=== PATIENT | male | born 1955 ===

== ENCOUNTER 2022-02-08 18:24 | Inpatient (IN) | payer MEDICAID, SELFPAY ==
--- NOTE | 2022-02-08 | DI.RAD_ITS ---
Exam(s) XR FEMUR LT EXAM: XR FEMUR LT CLINICAL HISTORY: Evaluate for fracture extension down shaft. TECHNIQUE: 2D digital imaging was performed. COMPARISON: No exams were available for comparison FINDINGS: Two views: There is an intertrochanteric fracture of the left hip with extension into the subtrochanteric region . The lesser trochanter is not avulsed. IMPRESSION: Inter-subtrochanteric fracture. If clinically indicated further study with CT or MRI can be performe d. DATA REPOSITORY: RADIATION DOSE DELIVERED:
[2022-02-08 20:06] VITALS: BP 125/60; PULSE 89; RESP 18; TEMP 36.6; O2SAT 97
[2022-02-08] MEDS: HYDROmorphone 2 MG/ML SYR 0.5 MG IVP (21:28)
--- NOTE | 2022-02-08 22:24 | DI.VRAD_ITS ---
PROCEDURE INFORMATION: Exam: XR Left Femur Exam date and time: 02/08/2022 21:53 Age: 66 years old Clinical indication: Injury or trauma; Fall; Blunt trauma; Hip and thigh or upper leg; Left; Patient HX: Evaluate for fracture extension down shaft TECHNIQUE: Imaging protocol: Radiologic exam of the Left femur. Views: 2 views. COMPARISON: CR XR LT HIP 1V PELVIS [id number]* 02/08/2022 13:38 FINDINGS: Bones/joints: Acute intertrochanteric left femoral fracture is again seen. The remainder of the femur is intact. Soft tissues: Soft tissue swelling surrounding the fracture site. IMPRESSION: Acute intertrochanteric left femoral fracture is again seen. The remainder of the femur is intact. Dictated and Authenticated by: Loida Baires MD. Ordering:ZULEYMA Jacome MD
[2022-02-08 22:57] VITALS: BP 154/78; PULSE 75; RESP 16; TEMP 37; O2SAT 99
[2022-02-08] MEDS: Ketorolac 15 MG/ML VIAL IVP (23:04)
[2022-02-08] MEDS: Lactated Ringers 1,000 ML 80 ML IV (23:20)
[2022-02-09] VITALS (17 sets, daily range): BP systolic 104–151; BP diastolic 53–99; PULSE 60–85; RESP 12–24; TEMP 36.6–37.5; O2SAT 97–100; BMI 26.6
[2022-02-09] MEDS: HYDROmorphone 2 MG/ML SYR 0.5 MG IVP ×3 (00:34→05:19)
[2022-02-09] MEDS: Normal Saline Flush 10 ML SYR IVP ×4 (00:34→20:36)
[2022-02-09] MEDS: Ketorolac 15 MG/ML VIAL IVP ×3 (05:20→20:36)
--- NOTE | 2022-02-09 06:42 | HPE_ITS ---
Date of service: 02/09/22 Time of Service: 06:00 Assessment and Plan Assessment and plan (1) Fracture, intertrochanteric, left femur: Status: Acute Assessment and plan: Anthony is an independent 66-year-old male who suffered a mechanical fall onto his left hip. Unfortunately, this resulted in an intertrochanteric fracture about the left femur. He has no other major medical issues. He is highly functional although with some mild residual deficits from his previous spinal injury when he was a child. I reviewed the fracture with Anthony and discussed treatment options. I would recommend operative fixation in the form of an intramedullary nail. I discussed this with him reviewed the procedure. I discussed the risk of the procedure to include bleeding, infection, pain, stiffness, damage nerves and vessels, damage to muscle and tendons, malunion, nonunion, hardware prominence, hardware failure, blood clot. Despite these risk, he elects to proceed. He will remain n.p.o. He was tested for COVID-[address] [facility] which was negative. He has no current COVID-19 symptoms nor close contacts. He will continue with his home straight cath regimen and we will avoid placement of a Moilna catheter. After surgery he will order physical therapy will be weightbearing as tolerated with anticipation of discharge to home with home health services. History of Present Illness History of Present Illness Chief Complaint: Left Hip Fracture Narrative: Anthony is a 66-year-old who was in his usual state of health yesterday morning. He was sitting outside enjoying the nice weather. He felt that he sat for a little too long and his legs are getting a little numb. He does have some chronic issues with his legs after a spinal injury as a kid which also resulted in some complications from surgery. However, this has been largely unchanged for some time. Nevertheless, as he went to stand his legs felt somewhat clumsy and he tripped over his own feet rotating and then eventually landing on his left side. As he was going down he reportedly fell the leg breaking at that time but immediately knew that he was unable to ambulate afterwards. EMS brought him to his local hospital, [facility]. He was diagnosed with an intertrochanteric fracture of the left hip. Unfortunately, there is no orthopedic coverage there and there is bed shortages throughout the region. [facility] reached out to us and I agreed to accept in transfer for direct admission and operative fixation of his left hip. Anthony currently reports controlled pain if not moving. However, when he moved he has acute worsening of pain. The current pain medications have been helping. He denies any new numbness or tingling suffer some mild dysesthesias of the proximal aspect of the left hip. He did not hit his head. Had no loss of consciousness. Due to his previous spinal injury and complication he has had urinary retention and therefore straight cath himself. This is not a new issue. Additionally he has some hypertension but no other medical issues. As for his spine, he suffered an injury to his back when he was 5 years old, 1958. 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 His function has been stable for many years now. He uses no assistive device for ambulation. Review of Systems All systems reviewed & are unremarkable except as noted in HPI and below PFSH All Active Problems (Updated 02/08/22 @ 22:17 by Aimee Mccann RN) Fracture, intertrochanteric, left femur (Acute) Medical History (Updated 02/08/22 @ 22:17 by Aimee Mccann RN) HTN (hypertension) Surgical History (Updated 02/08/22 @ 22:17 by Aimee Mccann RN) History of kidney removal Social History Smoking/Tobacco Use Status: Former Tobacco Use Quit Date: 04/20/86 Tobacco: How many years used: 15 Smoking risk assessment performed?: Yes Alcohol Intake: never Drug use: Daily Substance use type: marijuana Details: smokes marijuana daily Do you feel safe at home: Yes Additional Social history: long , not , from . has 19 year old daughter. Meds Allergies and Home Medications Allergies Allergy/AdvReac Type Severity Reaction Status Date / Time oxycodone Allergy Mild Itching Unverified 02/08/22 20:11 Home Medications Medication Instructions Recorded Confirmed Type lisinopril 2.5 mg tablet 2.5 mg PO DAILY 02/08/22 02/08/22 History Exam Const General: cooperative, healthy appearing, comfortable, no acute distress and well developed Resp Effort & Inspection: normal respiratory effort Auscultation: clear to auscultation bilaterally Cardio Rate: regular rate Rhythm: regular rhythm Extrem Other: Left leg is mildly externally rotated. No significant shortening appreciated. There is some fullness over the left hip but no significant swelling. Soft tissues are compressible. No abrasions or lacerations about the left hip. No pain to palpation over the distal femur or the knee. His left leg does have intact ankle dorsiflexion and plantarflexion. Sensation intact light touch over the deep and superficial peroneal nerve and tibial nerve. Results Imaging Imaging Studies: X-ray of the left hip performed at [facility] followed by an x-ray of the left femur performed here demonstrate a short spiral type intertrochanteric fracture of the left hip. This does seem to spiral down to just below the lesser trochanter but no significant extension distally. Mild displacement. There is some early arthritic change about the left hip. No other pelvic fracture. Labs Labs: Labs performed at [facility] demonstrate a white blood cell count of 19.3 and hemoglobin of 15.7 along with a platelet count of 201. His BUN was 12 and creatinine was 0.99. Potassium was 3.9 and sodium was 139. Glucose was 103. COVID-19 test was negative. Last Vital Signs Temp 36.6 C 02/09/22 03:15 Pulse 79 02/09/22 03:15 Resp 17 02/09/22 03:15 BP 109/60 02/09/22 03:15 Pulse Ox 99 02/09/22 03:15
--- NOTE | 2022-02-09 06:45 | DI.RAD_ITS ---
Exam(s) XR HIP LT IN OR EXAM: XR HIP LT IN OR CLINICAL HISTORY: femur fracture. TECHNIQUE: 2D digital imaging was performed. COMPARISON: No exams were available for comparison FINDINGS: Fluoroscopy was provided intraoperatively during left hip surgery for intertrochanteric fracture. Se e procedure report for details. Cumulative dose was 14.521mGy IMPRESSION: DATA REPOSITORY: RADIATION DOSE DELIVERED:
--- NOTE | 2022-02-09 07:23 | W.ANESPRE ---
General Info Date of Service Date Performed: 02/09/22 Height: 5 ft 4 in Weight: 70.307 kg Body Mass Index (BMI): 26.6 Surgical Procedure: Operation Date: 02/09/22 06:50 Proposed Procedure Side Surgeon p Hip TFNA Left Ayaz Faulkner MD Meds Allergies and Home Medications Allergies Allergy/AdvReac Type Severity Reaction Status Date / Time oxycodone Allergy Mild Itching Unverified 02/08/22 20:11 Home Medication Medication Instructions Recorded lisinopril 2.5 mg tablet 2.5 mg PO DAILY 02/08/22 Current Visit Medications: Current Medications Generic Name Dose Route Start Last Admin Trade Name Freq PRN Reason Stop Dose Admin Hydromorphone HCl 1 mg 02/09/22 06:41 Hydromorphone 2 Mg/Ml Syr IVP Q2H PRN PRN Hydromorphone HCl 2 mg 02/09/22 06:40 Hydromorphone 2 Mg Tab PO Q3H PRN PRN Ringer's Solution 1,000 mls @ 80 mls/hr 02/08/22 20:15 02/08/22 23:20 IV 80 mls/hr INFUSION JENNIFER Administration Tranexamic Acid 1,000 mg/ 60 mls @ 360 mls/hr 02/09/22 06:45 Sodium Chloride IVPB PREOP JENNIFER Cefazolin Sodium/Dextrose 2 gm in 50 mls @ 100 mls/hr 02/09/22 06:45 Ancef Duplex IVPB PREOP JENNIFER Ketorolac Tromethamine 15 mg 02/08/22 18:24 02/09/22 05:20 Ketorolac 15 Mg/Ml Vial IVP 02/13/22 18:23 15 mg Q6H PRN PRN Administration Lisinopril 2.5 mg 02/09/22 08:30 Lisinopril 5 Mg Tab PO DAILY JENNIFER Melatonin 3 mg 02/08/22 22:00 02/08/22 23:12 Melatonin 3 Mg Tab PO Not Given HS JENNIFER Sodium Chloride 10 ml 02/08/22 22:57 02/09/22 05:19 Normal Saline Flush 10 Ml Syr IVP 40 ml PRN PRN Administration PFSH Active Problems Active Problems: Problem Status Onset Code Fracture, intertrochanteric, left femur S72.142A Medical History Medical History (Updated 02/08/22 @ 22:17 by Aimee Mccann RN) HTN (hypertension) Surgical History Surgical History (Updated 02/08/22 @ 22:17 by Aimee Mccann, MOHIT) History of kidney removal Tobacco Smoking/Tobacco Use Status: Former Tobacco Use Alcohol Alcohol Intake: never Substance Use Substance use: Daily Substance use type: marijuana Details: smokes marijuana daily Vital Signs and Lab Results Vital Signs Most Recent Vital Signs in EMR: Most Recent Vital Signs Temp Pulse Resp BP Pulse Ox 36.6 C 79 17 109/60 99 02/09/22 03:15 02/09/22 03:15 02/09/22 03:15 02/09/22 03:15 02/09/22 03:15 Lab Results Blood Type / Crossmatch: No Data to Display Complete Blood Count: No Data to Display Complete Metabolic Panel: No Data to Display Liver Function Panel: No Data to Display Coagulation Panel: No Data to Display Cardiac Panel: No Data to Display Arterial Blood Gas: No Data to Display Venous Blood Gas: No Data to Display Pancreas Panel: No Data to Display Thyroid Panel: No Data to Display Infectious Disease: No Data to Display Blood Cultures: No Data to Display Toxicology Panel: No Data to Display Anesthesia Assessment and Plan Anesthesia History Personal History: No History of Anesthesia Complications Family History: No Family History of Anesthesia Complications Exercise Tolerance Exercise Tolerance: Metabolic Equivalents>4 Pertinent Negatives Pertinent Negatives: No Symptoms of GERD Cardiac & Pulmonary Exam Cardiac Exam: Normal S1/S2 Heart Sounds Pulmonary Exam: Clear Bilateral Breath Sounds Implantable Cardiac Device Does patient have a Pacemaker or an ICD?: No Airway Exam Known Difficult Airway: No Mallampati Class: 2 Mouth Opening: Normal (> 3cm) Thyromental Distance: Greater than 3 cm Neck Range of Motion: Full ROM Neck Circumference: Normal Teeth Condition: Normal Dentition ASA Classification ASA Score: ASA 2 Emergency Case?: Yes NPO Status NPO Status: NPO Clears >2 hours, Solids >8 hours Anesthesia Plan Resuscitation Status: Full Code Anesthesia Technique: General Anesthesia Airway Planned: Endotracheal Tube Monitors Used: Standard Monitors
[2022-02-09] MEDS: ceFAZolin 2 GM/50 ML BAG IVPB (08:10)
[2022-02-09] MEDS: Bupivacaine LIPOSOME/PF 133 MG/10 ML VIAL IJ (08:22)
[2022-02-09] MEDS: Bupivacaine 0.25% Pres-Free 30 ML VIAL (08:22)
--- NOTE | 2022-02-09 08:38 | INITIAL_ITS ---
- If Service Date Differs Date of service: 02/09/22 Time of Service: 08:38 Care Management Initial Assess REASON FOR HOSPITALIZATION:: intertrochanteris fracture left femur PAST MEDICAL HISTORY/PAST SURGICAL HISTORY:: All Active Problems (Updated 02/08/22 @ 22:17 by Aimee Mccann, MOHIT). Fracture, intertrochanteric, left femur (Acute). Medical History (Updated 02/08/22 @ 22:17 by Aimee Mccann, MOHIT). HTN (hypertension). Surgical History (Updated 02/08/22 @ 22:17 by Aimee Mccann, MOHIT). History of kidney removal PREVIOUS FUNCTIONAL STATUS/SOCIAL/FAMILY SUPPORTS:: Anthony lives in a single family home in [place], [place] and is from his . He has a daughter Basim who is 19 who goes to school at [employer] and lives with him when not in class. He also has a son Silas who is in his forties and lives in [place], [place] 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 Much of his work is displayed in the buildings in [place]. He is independent at baseline and does not receive any services. CURRENT FUNCTIONAL STATUS:: Anthony was sittting up in bed when CM met with him. Although he had only been back from surgery for a few hours, he was awake and alert and engaged readily in conversation. Anthony informed CM about some of his medical history which included a serious spine injury at the age of 5 which left him unable to walk for 2 years. He has had issues with his back associated with that injury ever since. Yesterday morning he was sitting outside foir a long time and when he went to get up, his feet were numb and he fell onto his left side, fracturing his femur. Anthony was in pain during the visit but he stated it was more from muscle spasms than from surgical pain at that time. In discussing his recuperation, Anthony asked if it would be possible to have HH PT vs outpatient. CM assured him that if his surgeon orders PT, that could be easily arranged. ADVANCE DIRECTIVES:: none on file Has patient been provided with info about the portal/API?: Yes Did the patient sign up for the portal?: No CODE STATUS:: Full Code INSURANCE COVERAGE / FINANCIAL ISSUES:: Medicaid CURRENT HOME/COMMUNITY SERVICES/EQUIPMENT:: none PRIMARY CARE PHYSICIAN:: [facility] in [place], [place] POTENTIAL DISCHARGE NEEDS:: follow up with PCP and plan of care PATIENT/FAMILY EDUCATION NEEDS:: Review of discharge instructions, limitations, activity, follow up plan, discuss Ask Me Three. TRANSPORTATION:: via private vehicle with family PLAN:: Anthony will fabiola be discharged home, possibly with services. He will follow up with his community providers and plan of care and transport with family. CM will support Anthony and his discharge needs.
--- NOTE | 2022-02-09 09:33 | ROE_ITS ---
Date of service: 02/09/22 Time of Service: 09:00 Operative Note Operative Note DATE OF PROCEDURE: 02/09/22 PRE-OP DIAGNOSIS: LEFT Intertrochanteric Femur Fracture POST-OP DIAGNOSIS: same PROCEDURE: Left Intramedullary Fixation of Proximal Femur Fracture SURGEON: Ayaz Faulkner Refer to Anesthesia Record ESTIMATED BLOOD LOSS: 150 PATHOLOGY: none sent COMPLICATIONS: None Patient was transported to: PACU Patient's condition: stable Implants: Depuy-Synthes TFNA 12mm x 170mm Indications: Anthony who presented to the [facility] Emergency Department after a fall. X-rays confirmed the diagnosis of a left sided intertrochanteric fracture of the proximal femur. 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 I reviewed the possible treatment options and given the fracture of the femur, I recommened operative fixation. I discussed the technical details of the surgery. I reviewed the risks such as bleeding, infection, pain, stiffness, malunion, nonunion, hardware prominence, hardware faiilure, malrotation, avascular necrosis, blood clot. Despite these risks, he agreed to proceed. Findings: There was a fracture of the proximal femur which was able to be reduced with traction and internal rotation and external manipulation. Procedure Description: Anthony was taken back to the operating room. A spinal anesthestic was then administered. The feet were wrapped with cast padding and Coban and then placed into the boot liners and then into the boots. Care was taken to protect the skin and make sure the heels were fully down and the boots were stable. The patient was then positioned onto the HANA table. Both legs were held in a neutral position. SCDs were applied. The patient was then slid down onto a perineal post. The arm of the operative side was then placed across the chest and secured. The nonoperative leg was scissored. A gentle reduction was then performed with traction and internal rotation and gentle external manipulation. Prophylactic antibiotics in the form of Cefazolin were administered. 1g of Tranxemic Acid was given intravenously within 30 minutes of incision. The left leg was then prepped with Chloraprep and draped in a standard fashion with shower-curtain type drape with Iodine impregnated skin protection. A timeout to confirm correct identity, side and site, procedure, allergies, anesthesia, and medical concerns was performed. Using fluoroscopy, the starting point was marked over the lateral hip, proximal to the tip of the greater trochanter. A 3cm incision was made through skin and the fascia of the gluteus musculature until the tip of the trochanter was palpable. The starting wire was placed onto the tip, just slightly on the media aspect, and centered in the AP plane. Using a michaela, the starting guide wire was buried into the bone. A lateral x-ray confirmed appropriate position and the guidewire was advanced to the level of the lesser trochanter. With a tissue protector, the proximal femur was opened with the opening reamer. The short TFNA was chosen for this case and a Synthes TFNA [id number] nail was selected and opened on the back table. The nail was assembled to the aiming arm on the back table and confirmed to be aligned with the triple sleeve for blade insertion. Using manual force the nail was advanced into the femur. A few light mallet blows advanced the nail to its appropriate position. The triple sleeve was inserted through the targeting arm and the skin, soft tissue, and IT band was then incised. The triple sleeve was advanced down to the lateral femur. A guidewire was advanced into the femoral head where it was noted to be centered. A lateral x-ray was used to confirm centered positioning on the lateral. Happy with the length of the guidewire, this was measured. A 100mm helical blade was opened. The lateral cortex was opened and the path of the blade was reamed with a tapered reamer to appropriate depth. The helical blade was malletted into position and confirmed to be appropriately located on fluoroscopy. The set screw was advanced to a half turn shy of fully tightened, allowing for the helical blade to slide. The fracture was compressed before removing the targeting device. The targeting device was removed. AP and lateral x-rays of the hip confirmed appropriate positioning within the femur and with good alignment of the fracture. Using the targeting arm, the skin was incised for placement of the distal locking screw. The trochar was inserted through the skin and IT band down onto the lateral cortex of the femur. The 4.2mm drill was advanced across the femur and through the nail. This was measured and an appropriately sized 5.0mm screw was placed. The targeting arm was removed. Final x-rays were obtained. The wounds were thoroughly irrigated. A cocktail consisting of 123mg of Ropivacaine, 0.25mg of Epinephrine, 0.04mg of Clonidine, and 15mg of Ketorolac, diluted to 50cc was injected throughout the wounds both deep and superficially. The deep fascia of the proximal two wounds was reapproximated with a 0 Vicryl. The deep tisses were closed with a 2-0 Vicryl and the skin was closed with a running subcuticular Monocryl. The wounds were dressed with a Mepilex silver dressing. At the end of the case, all counts were correct. Anthony tolerated the procedure well without known complication and was taken to the PACU for recovery. Physical therapy will start post-operatively, weigh-bearing as tolerated with assistive devices. Anticoagulation will start within 12-24 hours. 3 doses of post-operative antibitiocis for prophylaxis will be administered.
[2022-02-09] MEDS: HYDROmorphone 2 MG/ML SYR 1 MG IVP (10:05)
[2022-02-09] MEDS: Lactated Ringers 1,000 ML 80 ML IV ×2 (10:10→22:18)
[2022-02-09] MEDS: Lisinopril 5 MG TAB 2.5 MG PO (10:42)
--- NOTE | 2022-02-09 11:32 | W.ANESPOSTOP ---
Postoperative Evaluation Date, Time and Location Date Performed: 02/09/22 Time Performed: 11:32 Patient Location: Med/Surg Vital Signs Most Recent Imported Vital Signs: Most Recent Vital Signs Temp Pulse Resp BP Pulse Ox 37.0 C 72 18 132/71 99 02/09/22 11:11 02/09/22 11:11 02/09/22 11:11 02/09/22 11:11 02/09/22 11:11 Pain Score Most Recent Pain Score: Most Recent Pain Score Pain Level [Left Hip] 6 02/09/22 03:15 Pain Level 2 02/09/22 11:11 Assessment Mental Status: Awake (Alert & Oriented to Patient Baseline) Airway and Respiratory Function: Patent airway with normal (patient baseline) respiratory exam Cardiovascular Function: Hemodynamically Stable Hydration Status: Adequately Hydrated Nausea & Vomiting: No Nausea or Vomiting Pain: Pain is tolerable per patient Peripheral Nerve Block: Patient did not receive a nerve block
[2022-02-09] MEDS: HYDROmorphone 2 MG TAB PO ×4 (12:20→22:16)
[2022-02-09] MEDS: ceFAZolin 1 GM/50 ML BAG IVPB ×2 (13:26→22:15)
--- NOTE | 2022-02-09 15:25 | IN_ITS ---
Date of service: 02/09/22 Time of Service: 15:25 PT Notes Visit Reasons: Left Intertrochanteric Femur Fracture Physical Therapy Inpatient Initial Evaluation Date: 02/09/2022 Referring Doctor: Ayaz Faulkner MD PT Orders: PT CONSULT: S/P Ortho Surgery. S/P IMN for L hip Hip Fracture. WBAT with assistive device Precautions: Fall. Standard. WBAT on L LE with AD. Patient Profile/Admitting Diagnosis: Anthony is a 66-year-old male who sustained a left intertrochanteric fracture and is status post intramedullary nailing on postoperative day 0. PMHX: All Active Problems?(Updated 02/08/22 @ 22:17 by Aimee Mccann RN) Fracture, intertrochanteric, left femur (Acute) Medical History?(Updated 02/08/22 @ 22:17 by Aimee Mccann RN) HTN (hypertension) Surgical History?(Updated 02/08/22 @ 22:17 by Aimee Mccann RN) History of kidney removal Social History/Home Situation: Lives alone in a private home with no steps to enter. He does have a low rising a ramp that leads to the entrance of his house. Independent with all aspects of ADLs prior to surgery. Works as a mechanic welder truck driver. Lives an active life. Loves mountain biking. Equipment Owned/DME: None Subjective: Patient indicates achy pain at 3/10 at rest and 5/10 with ambulation activity. States his muscles goign to sudden spasm when he moves in bed. Denies headache, chest pain, and lightheadedness throughout session. Did report increased clamminess and sweating after activity. States that he has had a spinal cord injury issue when he was a child and he has had residual deficits from a previous laminectomy that he had. Objective: General Observation: Supine in bed. Mental Status: Alert and oriented as to person, place, time, and purpose. Able to pay attention, focus, and respond appropriately. Pain:3/10 in the L hip and anterior thigh at rest, 5/10 with movement Vital Signs: WNL as closely monitored by nursing staff ROM: Right Lower Extremity: Hip flexion WFL. Hip abduction WFL. Knee flexion WFL. Ankle dorsiflexion WFL. Ankle plantarflexion WFL. Left Lower Extremity: Unable to move beyond 90 due to pain for hip flexion. Unable to slide L UE onto center of bed from sit to supine due to pain. Needed assistance to the L LE for supine to sit with limited bending at kneedue to pain. Unable to extend at knee for sit to supine due to painAnkle dorsiflexion to neutral only. Ankle plantarflexion WFL. Strength: Right Lower Extremity: Hip flexors 5/5. Hip abductors 5/5. Knee flexors 5/5. Knee extensors 5/5. Ankle dorsiflexors 5/5. Ankle plantarflexors 5/5. Left Lower Extremity: Hip flexors 2-/5. Hip abductors 2-/5. Knee flexors 3-/5. Knee extensors 3-/5. Ankle dorsiflexors 3-/5. Ankle plantarflexors 4-/5. Bed Mobility/Transfers: Supine to sit minimal assist to L LE Sit to supine minimal assist to L LE Sit to stand with minimal assist Stand to sit with contact guard assist Gait: Instructed patient with level surface ambulation of 30 feet requiring contact guard assist. Step to gait pattern. Gait antalgic. Decreased dorsiflexion and eversion in B sides. Balance: Static Sitting: Good Dynamic Sitting: Fair Static Standing: Fair Dynamic Standing: Fair Special Tests: Mobility Limitations Standardized Measure [facility] 6 clicks Basic Mobility Inpatient Short Form: Raw Score: 19 CMS Score: 42% deficit Informed Consent/Education: Patient was instructed in purpose of PT consult and plan of care. Agreeable to proceed with established PT POC to achieve personal goals. Assessment: Gait pattern may compounded by pre-existing residual motor deficits from previous spinal cord injury and spine laminectomy. Patient presents with clinical signs and symptoms consistent with current/admitting diagnoses that have resulted to mobility limitations, gait instability, generalized weakness, and overall ADL decline as demonstrated by the following impairment level findings: 1. Decreased strength to L hip major muscle groups 2. Impaired sitting/standing balance 3. Impaired activity tolerance 4. Limitation of joint range of motion in L hip and knee Impairments are contributing to the following functional limitations: 1. Decline in bed mobility skills 2. Decline in transfer skills 3. Difficulty with ambulation without assistive device and physical assistance 4. Increased completion time for mobility ADL performance 5. Increased risk for falls 6. Difficulty with managing steps alone safely Patient is assessed as a 83325 moderate complexity based on the following: History: 66-year-old male with past medical history as indicated above Examination: Demonstrable impairment in strength, balance, and mobility level with underlying impairments and functional limitations as exhibited above as well as deficit score of 42% utilizing the [facility] Mobility Inpatient Short Form Presentation: Evolving Decision Makin moderate complexity Goals: Goals X1 week 1. Supine-Sit independent 2. Sit-Supine independent 3. Sit-Stand independent 4. Stand-Sit independent with SPC 5. Bed-Chair independent with SPC 6. Chair-Bed independent with SPC 7. Independent gait on level surface with use of SPC for at least 300 feet without report of pain nor dyspnea 8. Independent with home exercise program 9. Good static and dynamic standing balance/tolerance Plan of Care/Treatment Plan: 1-2x/day, 7 days/week x 1 week. Plan of care has been reviewed with the TELEPHONE SERVICE ADVISER providing the service under Physical Therapy direction. Initiate Physical Therapy intervention for pain management as needed, strengthening, bed mobility, transfers, gait, stairs, balance training, and use of assistive device. DISCHARGE RECOMMENDATIONS: [] Home with no services [] [] Home with services [specify] [X] Home with outpatient PT. Home when medically cleared by orthopedic surgeon. Will highly benefit from outpatient PT services in order to maximize functional mobility outcomes and facilitate independent community ambulation without an assistive device. [] SNF for continued rehabilitation [] [] [facility] [facility] [] [] SNF versus LTC based on ability to participate and progress [] TREATMENT CODE/TIME: 98576 x 20 minutes, 12833 x 28 minutes beginning at 15:25 PM. Thank you for the opportunity to participate in the care of this patient. Lizet Loco PT, DPT, CLT [facility] [place], [place]
[2022-02-09] MEDS: Melatonin 3 MG TAB PO (22:16)
[2022-02-10] VITALS (7 sets, daily range): BP systolic 100–148; BP diastolic 48–67; PULSE 68–78; RESP 14–20; TEMP 36.5–37.2; O2SAT 95–100
[2022-02-10] MEDS: HYDROmorphone 2 MG TAB PO ×7 (01:07→21:01)
[2022-02-10] MEDS: Melatonin 3 MG TAB PO ×2 (01:08→21:02)
[2022-02-10] MEDS: Ketorolac 15 MG/ML VIAL IVP (03:58)
[2022-02-10] MEDS: Normal Saline Flush 10 ML SYR IVP (03:59)
[2022-02-10] MEDS: ceFAZolin 1 GM/50 ML BAG IVPB (05:48)
[2022-02-10] MEDS: Lisinopril 5 MG TAB 2.5 MG PO (07:36)
[2022-02-10] MEDS: Celecoxib 200 MG CAP PO ×2 (09:18→19:32)
--- NOTE | 2022-02-10 10:40 | PDOC.CMPRO ---
- If Service Date Differs Date of service: 02/10/22 Time of Service: 10:40 Care Management Progress Note S/O: A: Anthony is a 66 year old man admitted on 02/08/22 with a left femur fracture P:Anthony will likely be discharged home, possibly with services. He will follow up with his community providers and plan of care and transport with family. CM will support Anthony and his discharge needs.
[2022-02-10] MEDS: Cyclobenzaprine 10 MG TAB PO ×2 (13:23→19:32)
--- NOTE | 2022-02-10 13:23 | PT.INTREAT ---
Date of service: 02/10/22 Time of Service: 07:50 PT Notes Visit Reasons: Left Intertrochanteric Femur Fracture Inpatient Physical Therapy Treatment Note [facility] Date: 02/10/2022 PRECAUTIONS: Fall, activity as tolerated, WBAT L SUBJECTIVE: Anthony is pleasant and agreeable to participating in PT. He reports that he is having pain about his L hip with movement today, although the muscle spasms occurring in L hip are bothering him more than the pain. He reports that he lives alone, and hopes to spend one more night. OBJECTIVE: PAIN: Patient c/o pain in L hip with ther ex, transfers, gait training. He also reports muscle spasms. He reports 6/10 pain in L hip in a.m. BED MOBILITY/TRANSFERS Sit-supine: SBA with HOB flat and cueing Sit-stand: SBA Stand-sit: SBA GAIT Assistive Device: FWW Weight bearing: WBAT L Assist: SBA Distance: 120' in a.m.; 80' in p.m. Deviation: Slow pacing, multiple standing rests, minimal weight bearing on L LE, c/o increased pain and spasms, without heel strike THEREX: Patient was instructed in a LE strengthening program, completed in a supine position in a.m. and in both long-sitting and seated positions in a.m., to include: ankle pumps, quad sets, glute sets, LAQ, seated hip flexion, heel slides and hip abduction. ASSESSMENT: Patient tolerated session with complaint of increased left hip pain and muscle spasms. He demonstrates slow annamarie and minimal weight bearing on L LE without heel strike. PLAN: Continue with gait and transfer training, as well as LE strengthening for improved mobility and activity tolerance. TREATMENT CODE/TIME: Session 1: 40 minutes; [id number] x2, 94614 (07:30) Session 2: 23 minutes; [id number] (12:58)
--- NOTE | 2022-02-10 16:27 | PDOC.CMPRO ---
- If Service Date Differs Date of service: 02/10/22 Time of Service: 16:27 Care Management Progress Note S/O:Anthony was sitting up in a chair when CM met with him. He was pleasant but appeared to be in pain, which he verbally confirmed. He stated that he had asked for pain medication and that his nurse would be bringing it soon. Anthony informed CM that he believes he will be ready for discharge tomorrow. He lives alone but feels he can manage with the use of a walker. He plans to discuss home health PT with Dr. Faulkner when he rounds today. A: Anthony is a 66 year old man admitted on 02/08/22 with a fractured femur. P:Anthony will likely be discharged home, possibly with services. He will follow up with his community providers and plan of care and transport with family. CM will support Anthony and his discharge needs.
--- NOTE | 2022-02-10 16:45 | W.PM.PROGNOT ---
Date of Service Date of service: 02/10/22 Time of Service: 12:40 Assessment and Plan Assessment and plan (1) Fracture, intertrochanteric, left femur: Status: Acute Assessment and plan: Anthony is a 66-year-old who is status post intramedullary nail fixation of the left proximal femur. I think he is doing appropriately. He is having some spasm issues. I did express some caution with combining muscle relaxers and narcotic pain medications. However, he has tolerated the pain medications well therefore we will add on the muscle relaxer to see if this makes a difference. He should continue her physical therapy. We will continue with discharge planning but likely discharged home in the next 1 to 2 days based on his ability to progress with physical therapy. Continue with Lovenox for DVT prophylaxis while in the hospital. Weightbearing as tolerated with assistive devices. Continue with his home straight cath regimen. Subjective Subjective Interval history since last seen: Anthony reports doing well. He does complain of some pain about the left hip but mostly bothered by spasms. He was having these prior to the surgery. He feels that the muscles are causing more pain than anything else. He denies any numbness or tingling. He has been able to mobilize physical therapy this morning. Exam Extrem Other: Sitting up in the chair. No acute distress. Alert and orient x3. Evaluation the left left leg shows clean dry and intact dressings. There is some swelling. Mild ecchymosis. No significant pain with internal and external rotation of the hip. Objective Last Vital Signs Temp 36.6 C 02/10/22 15:34 Pulse 68 02/10/22 15:34 Resp 14 02/10/22 15:34 BP 100/57 L 02/10/22 15:34 Pulse Ox 95 02/10/22 15:34
[2022-02-11] MEDS: HYDROmorphone 2 MG TAB PO ×7 (00:31→23:41)
[2022-02-11] MEDS: Cyclobenzaprine 10 MG TAB PO ×2 (02:44→20:15)
[2022-02-11 02:50] VITALS: BP 120/76; PULSE 77; RESP 18; TEMP 36.7; O2SAT 99
[2022-02-11 06:05] LABS: Platelet Count 157 10^3/uL (130-400)
[2022-02-11 07:20] VITALS: BP 130/62; PULSE 69; RESP 15; TEMP 37.2; O2SAT 98
[2022-02-11] MEDS: Celecoxib 200 MG CAP PO ×2 (07:45→20:15)
[2022-02-11] MEDS: Lisinopril 5 MG TAB 2.5 MG PO (10:02)
[2022-02-11 11:02] VITALS: BP 119/56; PULSE 84; RESP 18; TEMP 36.7; O2SAT 98
--- NOTE | 2022-02-11 11:08 | PDOC.CMPRO ---
- If Service Date Differs Date of service: 02/11/22 Time of Service: 11:08 Care Management Progress Note S/O: Anthony is sitting up in his chair eating lunch when CM met with him. He is feeling a lot better. He is very pleased with the care he is receiving by all the staff at [facility]. A: Anthony is a 66 year old man admitted on 02/08/22 with a fractured femur. P:Anthony will likely be discharged home, possibly with services. He will follow up with his community providers and plan of care and transport with family. CM will support Anthony and his discharge needs.
--- NOTE | 2022-02-11 11:42 | PTTR_ITS ---
Date of service: 02/11/22 Time of Service: 08:40 PT Notes Visit Reasons: Left Intertrochanteric Femur Fracture Inpatient Physical Therapy Treatment Note [facility] Date: 02/11/2022 PRECAUTIONS: Fall, activity as tolerated, WBAT L SUBJECTIVE: Anthony is pleasant and agreeable to participating in PT. He reports feeling better today compared to yesterday. OBJECTIVE: PAIN: Patient c/o pain in L hip and thigh with ther ex, transfers, gait training, mostly due to muscle spasms. BED MOBILITY/TRANSFERS Sit-supine: I with HOB flat Sit-stand: I Stand-sit: I Bed-chair: I with FWW GAIT Assistive Device: FWW Weight bearing: WBAT L Assist: S Distance: 200' in a.m.; 200' in p.m. Deviation: Slow pacing, multiple standing rests (a.m. only), minimal weight bearing on L LE (increasing in p.m.), c/o increased pain and spasms, without he el strike in a.m. (improved in p.m.) THEREX: Patient was instructed in a LE strengthening program, completed in a supine position in a.m. and in both long-sitting and seated positions in p.m., to include: ankle pumps, quad sets, glute sets, LAQ, seated hip flexion, heel slides and hip abduction. ASSESSMENT: Patient tolerated session with complaint of increased left hip and thigh pain and muscle spasms. He demonstrates slow annamarie and minimal weight bearing on L LE without heel strike. PLAN: Patient cleared to transfer and ambulate with FWW within room independently at this point. Will continue with gait training for improved gait mechanics and activity tolerance. TREATMENT CODE/TIME: Session 1: 30 minutes; [id number], [id number] (08:40) Session 2: 26 minutes; [id number], 72740 (13:18)
--- NOTE | 2022-02-11 12:35 | W.PM.PROGNOT ---
Date of Service Date of service: 02/11/22 Time of Service: 12:35 Assessment and Plan Assessment and plan (1) Fracture, intertrochanteric, left femur: Status: Acute Assessment and plan: Anthony is postop day #2 from his intervention nail fixation of the left femur fracture. In general, he is doing well. He still has some difficulties with transferring independently in the room due to spasm about his leg but he does feels improving. He has done well with physical therapy and I expect he will be discharged home tomorrow. We will continue to work on managing his spasms and pain with likely discharge tomorrow. I will order home health services as well. (2) Muscle spasm of left lower extremity: Status: Acute Assessment and plan: I did add on cyclobenzaprine and we will continue with other options such as heat and massage. I expect that this is also a pain response, therefore, it is important we treat the pain as well. Subjective Subjective Interval history since last seen: Anthony reports to be doing well. He was able to walk around the loop but has continued to have issues with cramping which have made transfers difficult. He is unable to put all of his weight on his left leg but does feel like things are improving. He has some baseline weakness which she feels is limiting his progress. He does live independently and is anxious about returning given his continued spasms with transfers. However, he is making progress on a daily basis. Exam Extrem Other: Sitting in the hospital bed. No acute distress. Alert and orient x3. Evaluation the left lower extremity shows clean dry and intact dressings. There is some swelling about the left thigh with minimal ecchymosis. As he moves his hip up and down through flexion and extension there is spasms and fasciculations seen along the lateral aspect of the thigh, most of the vastus lateralis. No significant pain with hip internal and external rotation. Objective Last Vital Signs Temp 36.7 C 02/11/22 11:02 Pulse 84 02/11/22 11:02 Resp 18 02/11/22 11:02 BP 119/56 L 02/11/22 11:02 Pulse Ox 98 02/11/22 11:02 Laboratory Results - last 24 hr 02/11/22 05:53 Plt Count 157
[2022-02-11 15:14] VITALS: BP 112/66; PULSE 80; RESP 16; TEMP 37; O2SAT 98
--- NOTE | 2022-02-11 15:57 | CHAPLAIN ---
Anthony was sitting up in the chair when I visited. He told me he was all set when I introduced myself as the interfpending sale to [facility] [employer] [employer]enc[employer] but then continued the conversation telling me about his surgery to repair his fractured femur, and pointed out the drawing on the white board that Dr. Faulkner made to show the repair work. Anthony said he's originally from [place] but moved to [place] last June because of the high cost of living in [place]. He expects he'll be discharged tomorrow. He lives alone, so he's hoping to have home health support. He has a 19 year old daughter at [employer].
[2022-02-11 18:30] VITALS: BP 134/73; PULSE 87; RESP 17; TEMP 37.3; O2SAT 100
[2022-02-11] MEDS: Melatonin 3 MG TAB PO (21:10)
[2022-02-11 23:49] VITALS: BP 125/68; PULSE 60; RESP 18; TEMP 37; O2SAT 99
[2022-02-12] MEDS: HYDROmorphone 2 MG TAB PO ×4 (03:11→14:01)
[2022-02-12] MEDS: Cyclobenzaprine 10 MG TAB PO (05:56)
[2022-02-12 07:18] VITALS: BP 127/70; PULSE 77; RESP 16; TEMP 36.4; O2SAT 98
--- NOTE | 2022-02-12 09:25 | PDOC.CMPRO ---
- If Service Date Differs Date of service: 02/12/22 Time of Service: 09:25 Care Management Progress Note S/O: Anthony is being discharged today. Per Dr. Faulkner he will need Home Health PT services. Anthony lives in [facility] and will receive HH services through [facility]. His PCP is Carol Soriano, DIRECTOR OF IN SERVICE EDUCATION at [facility] in [place]. CM left a voice mail for [place] at [facility], notifying of patient discharge with HH PT order. A: Anthony is a 66 year old man admitted on 02/08/22 with a fractured femur. P:Anthony will likely be discharged home, possibly with HH services. He will follow up with his community providers and plan of care and transport with family. CM will support Anthony and his discharge needs.
[2022-02-12] MEDS: Lisinopril 5 MG TAB 2.5 MG PO (09:48)
[2022-02-12] MEDS: Celecoxib 200 MG CAP PO (10:30)
[2022-02-12] MEDS: Enoxaparin 40 MG/0.4 ML SYR SC (10:30)
--- NOTE | 2022-02-12 10:53 | W.PM.DS.N ---
Date of service: 02/12/22 Time of Service: 10:53 DS: Diagnosis Discharge Diagnosis (1) Fracture, intertrochanteric, left femur: Status: Acute (2) Muscle spasm of left lower extremity: Status: Acute Discharge Plan Disposition Patient Disposition: HOME W/HOME HEALTH SERVICE Condition: Good Discharge Details Reason For Visit: Left Intertrochanteric Femur Fracture Admit Date/Time: 02/08/22 18:24 Admit Provider: Ayaz Faulkner Attending Provider: Ayaz Faulkner Primary Care Provider: Unknown,Unknown Hospital Course Hospital Course: Anthony was transferred from [facility] for management of a left intertrochanteric hip fracture. He underwent surgery on hospital day #2 with an intramedullary nail fixation of the left intertrochanteric hip fracture. He did well. He did have some issues with muscle spasm pain. This was managed with a regimen of cyclobenzaprine and Dilaudid p.o. He eventually was cleared for home discharge with home health services by physical therapy. He was back to his usual straight cath regimen and had no notable complications. He was deemed safe for discharge to home on hospital day #4. Home Meds and New Rx's Prescriptions: New aspirin 81 mg tablet,delayed release (DR/EC) 81 mg PO BID Qty: 60 0RF acetaminophen 500 mg tablet 1,000 mg PO Q8H PRN (Reason: pain) Qty: 90 3RF hydromorphone 2 mg tablet 2 mg PO Q4H PRN (Reason: pain) Qty: 18 0RF ibuprofen 600 mg tablet 600 mg PO TID PRN (Reason: pain) Qty: 90 3RF cyclobenzaprine 10 mg tablet 10 mg PO TID PRNQty: 18 0RF Continued lisinopril 2.5 mg Tablet 2.5 mg PO DAILY Discharge Instructions Additional Instructions: Hip Fracture Discharge Instructions Activity: The most important activity is to move short amounts frequently. You should try to take short walks a few times a day. You have no restrictions on movement or positioning, but do not try to force what you do. You will find some stiffness and weakness with hip flexion (lifting your knee) and muscle soreness. Do not try to strengthen this too early, continue to practice walking and stairs and this will come. You should use the walker until you are able to fully trust your hip/leg. Dressing: Keep the surgical dressing in place for at least one week. After the first week it may be removed and replace with light gauze and tape or nothing. It may get wet after 3 days but avoid soaking the dressing. If it gets wet, just lightly pat dry. Medications: - You should take Tylenol and an anti-inflammatory Ibuprofen as your primary pain control medications. If the Celebrex is too expensive or not covered, please call the office for another alternative (Advil/Ibuprofen or Naproxen/Aleve). - You have been prescribed a stronger pain medication Hydromorphone for breakthrough pain, take as needed as prescribed. You also have Cyclobenzaprine for muscle spasms. - You will be taking Aspirin 81mg twice a day for DVT prevention unless instructed otherwise. - If you have constipation you should take Colace or Miralax (both [id number]). It takes most people 3-4 days to have a bowel movement. Follow-up: 4 weeks with x-rays at [facility] and telehealth visit with Dr. Faulkner If you have any acute concerns or questions, please do not hesitate to contact the office at [phone]. You may contact Dr. Faulkner with any questions after hours through the hospital at [phone] or on his cell phone at [phone]. 1. Encounter Date and Reason I certify that Anthony Amor was seen by Ayaz Faulkner MD on 02/12/22 and that I had a [id number] encounter with this patient that meets the physician face to face encounter requirements. 2. Clinical Findings Supporting Skilled Need and Homebound Status I certify that home health services are medically necessary, include either intermittent shelter and/or physical/speech therapy, and that this patient is homebound in that absences from the home require considerable and taxing effort and are infrequent or of short duration, or are attributable to the need to receive medical care. [X] (a) Attached documentation from encounter provides clinical findings supporting skilled need and homebound status (including what assistance patient requires to leave the home). The encounter with the patient was in whole, or in part, for the following medical condition, which is the primary reason for home health care: Left Intertrochanteric Femur Fracture Halfway: Physical Therapy: Anthony will benefit from home health physical therapy due to his recent fracture and surgery. He is s/p intramedullary nail fixation of a left intertrochanteric hip fracyture. He is WBAT with assistive devices. He is also limited from a chronic spinal cord injury resulting in weakness and imbalance. Speech Therapy: Homebound: Anthony is unable to leave his home unassisted due to pain and weakness. 3. Certification and Authentication I certify that I composed the above information based on my clinical judgement relating to this patient's medical condition and, if applicable, clinical findings communicated to me by the NPP or inpatient physician who performed the Home Health Referral. All further orders will be obtained through Dr. Faulkner, Referrals: Ayaz Faulkner MD [ [facility] STAFF PHYSICIAN] - Activity:: Activity as Tolerated Equipment/Supplies:: Walker Diet:: As Tolerated Discharge Orders Discharge Orders: Discharge Order (Routine); Ordered 02/12/22 Ordered By: Ayaz Faulkner DS: Summary Time Spent with Patient providing and/or coordinating discharge services: Less than 30 minutes Status at Discharge Functional status at discharge: uses cane/walker Overall status at discharge: patient is progressing back to baseline Mental Status: mental status grossly normal Speech and Movement: speech and movement normal Mood: congruent mood Affect: normal affect Exam Narrative Exam Narrative: Sitting up in the bed. NAD. AAOX3 LLE dressing c/d/i. THigh swollen. Able to actively flex and extend hip. +ADF/APF/EHL/FHL. SILT DP/SP/Tib. Psych Mental Status: mental status grossly normal Speech and Movement: speech and movement normal Mood: congruent mood Affect: normal affect DS: Data Vitals/I&O Vitals and I&O: Vital Signs Temperature 36.4 C L 02/12/22 07:18 Temperature Source Tympanic 02/12/22 07:18 Pulse 77 02/12/22 07:18 Pulse Rhythm Regular 02/12/22 10:31 Respiratory Rate 16 02/12/22 07:18 Respiratory Effort Non-Labored 02/12/22 10:31 Respiratory Depth Normal 02/12/22 10:31 Respiratory Pattern Normal 02/10/22 16:22 Blood Pressure 127/70 02/12/22 07:18 Pulse Oximetry 98 02/12/22 07:18 Respiratory End-tidal CO2 35 02/09/22 09:32 Oxygen Delivery Method Room Air 02/12/22 07:18 Oxygen Flow Rate 0 02/12/22 07:18 Pain Level 1 02/12/22 07:18 Comment 02/10/22 00:01 Intake & Output 02/11/22 02/11/22 02/12/22 11:59 23:59 11:59 Intake Total 800 / 1600 800 / 1600 920 / 920 Output Total 400 / 900 500 / 900 700 / 700 Balance 400 / 700 300 / 700 220 / 220 Intake: Oral 800 / 1600 800 / 1600 920 / 920 Output: Urine 400 / 900 500 / 900 700 / 700 Other: Urine Color Yellow Dark Melissa Yellow Brown Urine Appearance Clear Clear Clear Comment patient straight cath independently, refused need to right now but will soon Voiding Methods Self-Catheterization Self-Catheterization PFSH All Active Problems Muscle spasm of left lower extremity (Acute) Fracture, intertrochanteric, left femur (Acute) Medical History HTN (hypertension) Surgical History History of kidney removal Social History Smoking/Tobacco Use Status: Former Tobacco Use Quit Date: 04/20/86 Tobacco: How many years used: 15 Smoking risk assessment performed?: Yes Alcohol Intake: never Drug use: Daily Substance use type: marijuana Details: smokes marijuana daily Do you feel safe at home: Yes Additional Social history: long , not , from . has 19 year old daughter.
--- NOTE | 2022-02-12 11:07 | CMDISCH_ITS ---
- If Service Date Differs Date of service: 02/12/22 Time of Service: 11:07 LACE Index Scoring Tool - Questions: Length of Stay (in days): 4 - 6 Acuity (Admit via E.D.?): No E.D. Visits: 0 - Answers: Total Score: 4 Risk of Readmission: Low Risk Care Management Discharge Reason for Hospitalization: intertrochanteris fracture left femur Discharge Plan: Anthony is discharged home via private vehicle with family. New RX's are transmitted to [facility] in [place]. New [facility] PT is ordered. Follow up appointment with Dr. Faulkner is on 03/10/22, as scheduled. Anthony will follow discharge plan of care as prescribed and follow up with community providers. Patient/Family Education Needs: Review discharge instructions, limitations, medications and plan to follow up with community providers. Discuss ask me three and goals of self care. Services Needed at Discharge: Home Health Care Services ([facility], PT. Anthony's PCP is Reno Soriano NP @ [facility] (CM notified PCP office of pt discharge and HH order.) Face to Face is faxed to [facility]. )
--- NOTE | 2022-02-12 12:09 | PT.INNT ---
Date of service: 02/12/22 Time of Service: 11:35 PT Notes Visit Reasons: Left Intertrochanteric Femur Fracture 02/12/2022 Patient declined need to work with PT prior to discharge to home today. He reports that he has been mobilizing within his room and out in the hallways with FWW support, independently. He reports steady gait and feels safe. Fit and issued FWW to patient for at home use, completed [facility] form and submitted to Care Management. Recommend follow up with HH PT versus OP PT upon discharge to home. Total treatment time: 10 minutes; no charge
--- NOTE | 2022-02-12 15:02 | INDS_ITS ---
Date of service: 02/12/22 Time of Service: 15:24 PT Notes Visit Reasons: Left Intertrochanteric Femur Fracture Physical Therapy Inpatient Discharge Summary Date: 02/11/2022 Dates of service: 02/09/2022 through 02/11/2022 This is a clinical summary of care provided for the duration of dates listed above. No charge was made in the completion of this documentation. Referring Doctor:? Ayaz Faulkner MD PT Orders: PT CONSULT: S/P Ortho Surgery.? S/P IMN for L hip Hip Fracture.? WBAT with assistive device Precautions: Fall. Standard. WBAT on L LE with AD. Patient Profile/Admitting Diagnosis:? Anthony is a 66-year-old male who sustained a left intertrochanteric fracture and is status post intramedullary nailing on postoperative day 0. PMHX: All Active Problems?(Updated 02/08/22 @ 22:17 by Aimee Mccann RN) Fracture, intertrochanteric, left femur (Acute) Medical History?(Updated 02/08/22 @ 22:17 by Aimee Mccann RN) HTN (hypertension) Surgical History?(Updated 02/08/22 @ 22:17 by Aimee Mccann RN) History of kidney removal Social History/Home Situation: Lives alone in a private home with no steps to enter.? He does have a low rising a ramp that leads to the entrance of his house.? Independent with all aspects of ADLs prior to surgery.? 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 Lives an active life.? Loves mountain biking. Equipment Owned/DME: None Subjective: NT. See most recent LEAD CUSTOMER SERVICE REPRESENTATIVE notes. Objective: General Observation: NT. See most recent LEAD CUSTOMER SERVICE REPRESENTATIVE notes. Mental Status: NT. See most recent LEAD CUSTOMER SERVICE REPRESENTATIVE notes. Pain:NT. See most recent LEAD CUSTOMER SERVICE REPRESENTATIVE notes. Vital Signs: NT. See most recent LEAD CUSTOMER SERVICE REPRESENTATIVE notes. ROM: Right Lower Extremity: Hip flexion WFL. Hip abduction WFL. Knee flexion WFL. Ankle dorsiflexion WFL. Ankle plantarflexion WFL. Left Lower Extremity: Unable to move beyond 90 due to pain for hip flexion. Unable to slide L UE onto center of bed from sit to supine due to pain. Needed assistance to the L LE for supine to sit with limited bending at kneedue to pain.? Unable to extend at knee for sit to supine due to painAnkle dorsiflexion to neutral only.? Ankle plantarflexion WFL. Strength: Right Lower Extremity: Hip flexors 5/5. Hip abductors 5/5. Knee flexors 5/5. Knee extensors 5/5. Ankle dorsiflexors 5/5. Ankle plantarflexors 5/5. Left Lower Extremity: Hip flexors 2-/5. Hip abductors 2-/5. Knee flexors 3-/5. Knee extensors 3-/5. Ankle dorsiflexors 3-/5. Ankle plantarflexors 4-/5. BED MOBILITY/TRANSFERS? Sit-supine: I with HOB flat Sit-stand: I? Stand-sit: I Bed-chair: I with FWW? GAIT? Assistive Device: FWW? Weight bearing: WBAT L Assist: S ? Distance:? 200' in a.m.; 200' in p.m.? Deviation: Slow pacing, multiple standing rests (a.m. only), minimal weight bearing on L LE (increasing in p.m.), c/o increased pain and spasms, without heel strike in a.m. (improved in p.m.)? Balance: Static Sitting: Good Dynamic Sitting: Fair Static Standing: Fair Dynamic Standing: Fair Assessment: Heel-toe gait pattern not consistent due to pain level and residual motor deficits from spinal injury and back surgery. Gait pattern may compounded by pre-existing residual motor deficits from previous spinal cord injury and laminectomy.? Patient presents with clinical signs and symptoms consistent with current/admitting diagnoses that have resulted to mobility limitations, gait instability, generalized weakness, and overall ADL decline as demonstrated by the following impairment level findings: 1.? Decreased strength to L hip major muscle groups 2.? Impaired sitting/standing balance 3.? Impaired activity tolerance 4.? Limitation of joint range of motion in L hip and knee Impairments are contributing to the following functional limitations: 1.? Decline in bed mobility skills 2.? Decline in transfer skills 3.? Difficulty with ambulation without assistive device and physical assistance 4.? Increased completion time for mobility ADL performance 5.? Increased risk for falls 6.? Difficulty with managing steps alone safely Goals: Goals X1 week 1. Supine-Sit independent MET 2. Sit-Supine independent MET 3. Sit-Stand independent MET 4. Stand-Sit independent with SPC MET 5. Bed-Chair independent with SPC MET 6. Chair-Bed independent with SPC MET 7. Independent gait on level surface with use of SPC for at least 300 feet without report of pain nor dyspnea NOT MET 8. Independent with home exercise program NOT MET 9. Good static and dynamic standing balance/tolerance NOT MET DISCHARGE RECOMMENDATIONS: [] ? Home with no services [] [X] ? Home with services. Home when medically cleared by orthopedic surgeon. Patient will benefit from home health PT services in order to progress mobility level using least restrictive assistive ambulatory device, assess home safety, identify additional equipment needs, and establish a functional maintenance program that will increase ability of patient to remain at home. [] ? Home with outpatient PT [] [] ? SNF for continued rehabilitation [] [] ? Care Home Care [] [] ? SNF versus LTC based on ability to participate and progress [] TREATMENT CODE/TIME: NC Thank you for the opportunity to participate in the care of this patient. Lizet Loco PT, DPT, CLT [facility] [place], [place]
== END 2022-02-12 14:05 | disposition home health service (06) | DRG 482 ==
PROVIDERS: Admitting Provider Student in an Organized Health Care Education/Training Program; PCP Nurse Practitioner Family; Visit Provider Student in an Organized Health Care Education/Training Program
PROC: 0QS706Z Reposition Left Upper Femur with Intramedullary Internal Fixation Device, Open Approach (ICD-10-PCS; CPT 27245; principal; 2022-02-09 06:50)
DX: S72.142A Displaced intertrochanteric fracture of left femur, initial encounter for closed fracture (principal); M62.838 Other muscle spasm; W18.39XA Other fall on same level, initial encounter; Z90.5 Acquired absence of kidney; I10 Essential (primary) hypertension
CPT/HCPCS: 27245; 36415; 73552; 97110; 97162; 97530; J1650; 73501; 85049; J0690; J1100; J1170; J1885; J2250; J2405; J2704